=== PATIENT | female | born 1975 | race African-American/Black ===

== ENCOUNTER 2016-03-27 13:08 | Emergency (ER) | payer OTHER ==
[~2016-03-27] VITALS: Ht 165.1 cm; Wt 93.2 kg
[~2016-03-27 13:08] MED LIST: CYCL-36 PO; FIORIC PO; NORC7.5T PO; VALI10TA PO
[2016-03-27 13:10] VITALS: BP 117/58; PULSE 78; RESP 15; TEMP 98; O2SAT 98
[2016-03-27] MEDS ORDERED: AZIT250T3 PO (13:50)
[2016-03-27] MEDS ORDERED: PRED10 PO (13:50)
[2016-03-27] MEDS ORDERED: TRAM50TA PO (13:50)
--- NOTE | 2016-03-27 15:31 | PD ---
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 She denies fever, chills, abdominal pain, dysuria, back pain. She states she is otherwise been feeling well. She denies use of new soaps or history of STD or vaginal candidiasis. Endorses unprotected sex with a single male partner of 28 years. LMP PFSH Past Medical History Cancer: Yes (left breast 2004) Chemotherapy: Yes (2004) Diabetes: Yes (BORDERLINE ) Diminished Hearing: No Respiratory: Yes (BRONCHITIS ) ?: Unknown LMP: UNKNOWN : 4 Para: 2 Past Surgical History Other Surgery: Yes (left breast lumpectomy 2004) Social History Alcohol Use: Yes (2x weekly) Tobacco Use: Yes (3 cig daily) Substance Use: No Allergies-Medications (Allergen,Severity, Reaction): Coded Allergies: [place] (Verified Allergy, Severe, Hives, 03/27/16) Reported Meds & Prescriptions Reported Meds & Active Scripts Active Monistat 3 Combination Pa 200-2 mg-% (9Gm) (Miconazole Nitrate Vaginal) 1 Kit Kit 1 Appl VAGINAL HS 3 Days APPLY ACCOMPANYING CREAM TOPICALLY NEEDED. Reported Prednisone 10 Mg Tab 10 Mg PO DAILY Azithromycin 250 Mg Tab 250 Mg PO DIRECTED Take 2 tabs (500 mg) on day 1 then 1 tab daily x 4 days. Tramadol (Tramadol HCl) 50 Mg Tab 200 Mg PO DAILY PRN Review of Systems Except as stated in HPI: all other systems reviewed are Neg Physical Exam Narrative GENERAL: Well-nourished, well-developed nontoxic appearing white female in no acute distress. SKIN: Warm and dry. HEAD: Normocephalic. EYES: No scleral icterus. No injection or drainage. NECK: Supple, trachea midline. No JVD or lymphadenopathy. CARDIOVASCULAR: Regular rate and rhythm without murmurs, gallops, or rubs. RESPIRATORY: Breath sounds clear and equal bilaterally. No accessory muscle use. GASTROINTESTINAL: Abdomen soft, non-tender, nondistended. No suprapubic tenderness. Active bowel sounds. MUSCULOSKELETAL: No cyanosis, or edema. 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 GENITOURINARY: Normal external genitalia without lesions. Mildly erythematous vaginal vault with thick white drainage. No blood. Cervical os was closed without drainage. No cervical motion tenderness. Uterus nontender and nonenlarged. Bilateral adnexa nontender without masses. BACK: Nontender without obvious deformity. No CVA tenderness. Data Data Last Documented VS Vital Signs Date Time Temp Pulse Resp B/P Pulse Ox O2 Delivery O2 Flow Rate FiO2 03/27/16 13:10 98.0 78 15 117/58 98 Orders Urinalysis - C+S If Indicated (03/27/16 14:16) Ed Urine Pregnancytest Poc (03/27/16 14:16) Gc And Chlamydia Pcr (03/27/16 15:48) Wet Prep Profile (03/27/16 15:48) Labs Laboratory Tests Test 03/27/16 03/27/16 16:00 16:10 Urine Color YELLOW Urine Turbidity HAZY Urine pH 5.5 Urine Specific [place] 1.017 Urine Protein NEG mg/dL Urine Glucose (UA) NEG mg/dL Urine Ketones 10 mg/dL Urine Occult Blood SMALL Urine Nitrite NEG Urine Bilirubin NEG Urine Urobilinogen LESS THAN 2.0 MG/DL Urine Leukocyte Esterase LARGE Urine RBC 1 /hpf Urine WBC 4 /hpf Urine Squamous Epithelial 15 /hpf Cells Urine Bacteria RARE /hpf Microscopic Urinalysis Comment CULT NOT INDICATED Clue Cells (Wet Prep) NONE SEEN Vaginal Trichomonas (Wet Prep) NONE SEEN Vaginal Yeast (Wet Prep) NONE SEEN MDM Medical Decision Making Medical Screen Exam Complete: Yes Emergency Medical Condition: Yes Differential Diagnosis Vaginal candidiasis versus STI versus vulvovaginitis versus UTI versus other Narrative Course 40-year-old female presents to the ED for evaluation of 2 day history of vaginal erythema, pruritus and white discharge. She denies fever, chills, abdominal pain, dysuria, back pain. She states she is otherwise been feeling well. She denies use of new soaps or history of STD or vaginal candidiasis. Endorses unprotected sex with a single male partner of 28 years. LMP 1 week ago. Vitals reviewed. Abdominal exam is unremarkable. No CVA tenderness. Pelvic exam reveals an erythematous vaginal vault with quite discharge. No adnexal or cervical motion tenderness. No culture indicated of the UA. Wet prep negative. GC and chlamydia pending. I offered the patient empiric treatment which she declined. I suspect this is vaginal candidiasis, with false negative of the wet prep. We'll treat with Monistat 3 combination back. I informed the patient that symptoms can last up to 7 days after treatment, follow-up with the polysomnographer should symptoms persist beyond that. She indicated understanding of instructions. She is agreeable to plan of care. She is stable and discharged home. Diagnosis Primary Impression: Acute vulvovaginitis Referrals: [facility] Patient Instructions: General Instructions, Vulvovaginal Candidiasis (ED) Additional Instructions: Take medications as prescribed. Symptoms can persist for 5-7 days posttreatment. If symptoms persist beyond that, follow up with your polysomnographer. Return to the ED for any urgent or emergent medical condition. Med/Other Pt SpecificInfo: Prescription(s) given Scripts Miconazole Nitrate Vaginal (Monistat 3 Combination Pa 200-2 mg-% (9Gm))1 Kit Kit1 Appl VAGINAL HS 3 Days APPLY ACCOMPANYING CREAM TOPICALLY NEEDED. Prov:Tan Valentin MD 03/27/16 Disposition: 01 DISCHARGE HOME Condition: Stable Lanny Holm Mar 27, 2016 15:31
[2016-03-27 16:54] LABS: BACTERIA, URINE RARE /hpf; BLOOD, URINE SMALL (NEG); COMMENT (UR) CULT NOT INDICATED; CULTURE IF INDICATED CULT NOT INDICATED; GLUCOSE,URINE NEG (NEG); KETONE, URINE 10 mg/dL (NEG); NITRITE,URINE NEG (NEG); PH, URINE 5.5 (5.0-8.5); SQUAMOUS EPITHELIAL CELL URINE 15 /hpf (0-5); URINE COLOR YELLOW (YELLW/STRAW)
[2016-03-27] MEDS ORDERED: MICO1KIT VAGINAL (17:04)
[2016-03-27 18:35] LABS: CHLAMYDIA PCR NOT DETECTED (NOT DETECT); NEISSERIA PCR NOT DETECTED (NOT DETECT)
== END 2016-03-27 17:29 | disposition home or self-care (01) ==
LOC: NEPA 13:08
DX: N76.0 Acute vaginitis (principal)
CPT/HCPCS: 81001; 84703; 87210; 87491; 87591; 99283

== ENCOUNTER 2016-05-31 11:36 | Emergency (ER) | payer OTHER ==
[~2016-05-31 11:36] MED LIST changes: +AZIT250T3 PO; -CYCL-36 PO; -FIORIC PO; +MICO1KIT VAGINAL; -NORC7.5T PO; +PRED10 PO; +TRAM50TA PO; -VALI10TA PO
--- NOTE | 2016-05-31 12:38 | PD ---
HPI Chief Complaint: Injury Time Seen by Provider: 12:36 Travel History International Travel<30 days: No Contact w/Intl Traveler<30days: No Traveled to known affect area: No History of Present Illness HPI 40-year-old female presents to the emergency Department with complaint of left ankle pain after twisting it while at work yesterday. She denies paresthesias, loss of sensation to the affected extremity. Has been ambulating on the affected extremity occasionally. Reports swelling to the ankle. Reports pain to the medial aspect. Denies fever, chills, nausea, vomiting. Took Tylenol last night for the pain. Has not taken any other medications or tried any other treatments to be "her symptoms. Allergies to strawberries. Is a borderline diabetic and currently does not take any medications. No other Modifying factors or associated signs and symptoms. PFSH Past Medical History Cancer: Yes (left breast 2004) Chemotherapy: Yes (2004) Diabetes: Yes (BORDERLINE ) Diminished Hearing: No Respiratory: Yes (BRONCHITIS ) ?: Not : 8 Para: 8 Past Surgical History Other Surgery: Yes (left breast lumpectomy 2004) Social History Alcohol Use: Yes (3x weekly) Tobacco Use: Yes (1 cig daily) Substance Use: No Allergies-Medications (Allergen,Severity, Reaction): Coded Allergies: [place] (Verified Allergy, Severe, Hives, 05/31/16) Reported Meds & Prescriptions Reported Meds & Active Scripts Active Ibuprofen 800 Mg Tab 800 Mg PO Q6HR PRN Monistat 3 Combination Pa 200-2 mg-% (9Gm) (Miconazole Nitrate Vaginal) 1 Kit Kit 1 Appl VAGINAL HS 3 Days APPLY ACCOMPANYING CREAM TOPICALLY NEEDED. Reported Prednisone 10 Mg Tab 10 Mg PO DAILY Azithromycin 250 Mg Tab 250 Mg PO DIRECTED Take 2 tabs (500 mg) on day 1 then 1 tab daily x 4 days. Tramadol (Tramadol HCl) 50 Mg Tab 200 Mg PO DAILY PRN Review of Systems Except as stated in HPI: all other systems reviewed are Neg Physical Exam Narrative GENERAL: Well-nourished, well-developed female patient, in no acute distress SKIN: Warm and dry. HEAD: Atraumatic. Normocephalic. EYES: Pupils equal and round. No scleral icterus. No injection or drainage. ENT: Mucosa pink and moist. Airway patent. NECK: Trachea midline. CARDIOVASCULAR: Regular rate. RESPIRATORY: No accessory muscle use. GASTROINTESTINAL: Flat. MUSCULOSKELETAL: Left ankle is mildly edematous and without erythema or ecchymosis; with point tenderness to the medial malleolar zone; no obvious deformity. Left lower extremity is supple and non-tense with 2+ pedal pulse and sensory intact. No obvious deformities. No clubbing. No cyanosis. No edema. NEUROLOGICAL: Awake and alert. Oriented 3. No obvious cranial nerve deficits. Motor grossly within normal limits. Normal speech. PSYCHIATRIC: Appropriate mood and affect; insight and judgment normal. Data Data Last Documented VS Vital Signs Date Time Temp Pulse Resp B/P Pulse Ox O2 Delivery O2 Flow Rate FiO2 05/31/16 13:09 98.1 78 17 136/74 98 Orders Ankle, Complete ([id number]) (05/31/16 12:35) Ice/Cold Pack (05/31/16 12:35) Crutches (05/31/16 13:54) Splint Or Brace Apply/Monitor (05/31/16 13:54) MDM Medical Decision Making Medical Screen Exam Complete: Yes Emergency Medical Condition: Yes Medical Record Reviewed: Yes Differential Diagnosis Ankle sprain, ankle fracture, ankle dislocation Narrative Course 40-year-old female with left ankle injury. I with the patient a nonnarcotic on the ER and she declined. Left ankle x-ray ordered. Ice pack ordered. 1353: Left ankle x-ray with no acute findings. Steven bandage, ankle stirrup splint, crutches provided for support. Ibuprofen prescribed for home. Instructed patient to follow up if symptoms persist greater than 7-10 days. Patient verbalizes understanding and agreement with treatment plan. Patient is medically cleared and stable for discharge. Discussed reasons to return to the emergency department. Instructed patient to follow up with primary care provider. Patient agrees with treatment plan. The patients vital signs are stable and the patient is stable for outpatient follow-up and treatment. Patient discharged home, stable and in no acute distress. Diagnosis Primary Impression: Left ankle sprain Qualified Code: S93.402A - Sprain of left ankle, unspecified ligament, initial encounter Referrals: Primary Care Physician Patient Instructions: Ankle Sprain (ED), Ankle Stirrup Splint (ED), Crutch Instructions (ED), General Instructions Departure Forms: Tests/Procedures, Work Release Enter return to work date: Jun 06, 2016 Additional Instructions: Tylenol or ibuprofen as directed and as needed for pain and inflammation Rest, ice, compress, and elevate extremity to decrease pain and inflammation Ankle Brace for support Crutches for support Avoid aggravating activity; increase activity as tolerated Follow-up with primary care provider Return to the emergency department immediately with worsening symptoms Med/Other Pt SpecificInfo: Prescription(s) given Scripts Ibuprofen 800 Mg [id number] Mg PO Q6HR PRN (PAIN) #30 TAB Ref 0 Prov:Ngozi Christy 05/31/16 Disposition: 01 DISCHARGE HOME Condition: Stable Ngozi Christy May 31, 2016 12:38
[2016-05-31 13:09] VITALS: BP 136/74; PULSE 78; RESP 17; TEMP 98.1; O2SAT 98
--- NOTE | 2016-05-31 13:43 | RADRPT ---
EXAM DATE/TIME: 05/31/2016 13:01 [facility] COMPARISON: No previous studies available for comparison. INDICATIONS : Patient twisted her ankle at work yesterday. MEDICAL HISTORY : None. SURGICAL HISTORY : None. ENCOUNTER: Initial ACUITY: 1 day PAIN SCORE: 7/10 LOCATION: Left Medial malleolus. FINDINGS: Three view exam was performed of the left ankle. The bony structures are in normal alignment. No ev idence of fracture, dislocation, or soft tissue swelling. The ankle mortise is intact. No radiopaqu e foreign bodies are seen. Bony mineralization is normal. CONCLUSION: 1. Negative examination of the ankle. Arley Tejeda MD on May 31, 2016 at 13:40 Board Certified Radiologist. This report was verified electronically.
[2016-05-31] MEDS ORDERED: IBUP800T23 PO (13:54)
== END 2016-05-31 14:13 | disposition home or self-care (01) ==
LOC: NETRI 11:36
DX: S93.402A Sprain of unspecified ligament of left ankle, initial encounter (principal); X50.1XXA Overexertion from prolonged static or awkward postures, initial encounter
CPT/HCPCS: 73610; 99283; E0113; L1906